=== PATIENT | male | born 1995 | race Caucasian/White ===

== ENCOUNTER 2021-05-18 18:51 | Emergency (ER) | payer OTHER, SELFPAY ==
[2021-05-18 18:57] VITALS: BP 125/76; PULSE 85; RESP 18; TEMP 37.2; O2SAT 98
--- NOTE | 2021-05-18 19:13 | ED.GENADUL_ITS ---
Discharge Plan Disposition Patient Disposition: [facility] Condition: Stable Discharge Details Clinical Impression: Encounter for medical screening examination, Hand injury Primary Care Provider: Rosalinda Hong ED Provider: Trey Yoder Home Meds and New Rx's Prescriptions: Continued bupropion HCl 75 mg Tablet 75 mg PO DAILY RF: 0 quetiapine [Seroquel] 50 mg Tablet 50 mg PO DAILY RF: 0 Discharge Instructions Additional Instructions: At this time you have been provided with a medical screening examination. Your vital signs are unremarkable. Your only complaint is that of right hand pain and you are declining evaluation of your right hand injury and also declining an x-ray. Please watch for new or worsening symptoms and return to the ER for any concerns. Otherwise follow-up with your provider at the [facility] facility in the next 2-3 days. Discharge Data Discharge Date/Time-TO BE ENTERED AT DEPARTURE: 05/18/21 19:16 Medical Decision Making 25-year-old gentleman presents in police custody for medical screening examination. Initially he wanted to be evaluated for a right hand injury but now declines. We had a very candid conversation, this is his right hand which is his dominant hand, and if he has a more serious injury such as fracture, dislocation, etc. this may not properly heal and could lead to permanent disability. Patient understands this and continues to decline any additional evaluation. He was offered a medical screening examination, vital signs are unremarkable, and he has no additional questions or concerns. Standard discharge and return precautions were provided. This documentation was generated using [employer] dictation system, please disregard any oddities of phrase or misspellings. HPI General Mode of arrival: ambulatory (In police custody) . Date/Time Provider Initiated Documentation: 05/18/21 18:59 . Limitations to Documentation: no limitations . Information obtained by: patient and police . HPI Narrative: This is a 25-year-old gentleman, denies significant past medical history, presents to the ER in police custody for medical screening examination and a right hand evaluation. Apparently he states that earlier today he slipped and fell in the shower injuring his right hand, his dominant hand. He initially requested medical attention but now states it is simply sprained it does not want any medical attention. Because he has left the facility, law enforcemtn reports that he needs to be medically cleared. Patient denies any other recent illness or trauma. He denies any other injury when he fell he reports the pain is mild to moderate worse with movement. Denies any numbness, tingling, weakness. He has no additional questions or concerns and does not want to be evaluated here in the ER Related Data Home Medications Medication Instructions Recorded Confirmed bupropion HCl 75 mg PO DAILY 05/18/21 05/18/21 quetiapine [Seroquel] 50 mg PO DAILY 05/18/21 05/18/21 Allergies Allergy/AdvReac Type Severity Reaction Status Date / Time No Known Allergies Allergy Unverified 05/18/21 19:04 General Stated Complaint: Orthopedic FLORENCIO: 4 Review of Systems Constitutional Constitutional: Denies fever(s), Denies headache(s) and Denies weakness ENT Ears, Nose, Mouth, and Throat: Denies headache(s) Musculoskeletal Musculoskeletal: Denies deformity, Denies arthralgias, Denies numbness, Reports stiffness and Denies tingling Neurologic Neurologic: Denies headache(s), Denies numbness, Denies tingling and Denies weakness PFSH All Active Problems Encounter for medical screening examination (Acute) Hand injury (Acute) Social History Smoking/Tobacco Use Status: Current every day Smoking risk assessment performed?: Yes Alcohol Intake: former Substance use type: does not use Do you feel safe at home: Yes Do you feel safe in your relationship?: Yes Exam Const General: cooperative, healthy appearing, comfortable and no acute distress Orientation: alert and awake [facility] Head: normal to inspection, normocephalic and atraumatic Eyes Conjunctivae: conjunctivae normal Neck Neck: normal visual inspection, trachea midline and supple Resp Effort & Inspection: normal respiratory effort and able to speak in complete sentences Skin General skin exam: no rashes or lesions noted Neuro General: patient alert, patient awake, moves all extremities and no focal motor deficits Cognition: normal cognition Speech: speech normal Gait: normal gait Sensory Exam: no sensory deficits noted Extrem Other: The dorsum of the right hand appears swollen. I could not palpate his hand. Extremely limited evaluation Psych Appearance: grossly normal Mental Status: mental status grossly normal Course Vital Signs Vital signs: Vital Signs Temperature 37.2 C 05/18/21 18:57 Pulse 85 05/18/21 18:57 Respiratory Rate 18 05/18/21 18:57 Blood Pressure 125/76 05/18/21 18:57 Pulse Oximetry 98 05/18/21 18:57 Temperature 37.2 C 05/18/21 18:57 Temperature Source Temporal Artery Scan 05/18/21 18:57 Pulse 85 05/18/21 18:57 Respiratory Rate 18 05/18/21 18:57 Respiratory Effort 05/18/21 18:59 Blood Pressure 125/76 05/18/21 18:57 Blood Pressure Position Sitting 05/18/21 18:57 Pulse Oximetry 98 05/18/21 18:57 Oxygen Delivery Method Room Air 05/18/21 18:57 Oxygen Flow Rate 0 05/18/21 18:57 Pain Level 3 05/18/21 18:57
== END 2021-05-18 19:16 | disposition home or self-care (01) ==
PROVIDERS: Emergency Provider Physician Assistant; PCP Family Medicine
DX: M79.641 Pain in right hand (principal); Z53.21 Procedure and treatment not carried out due to patient leaving prior to being seen by health care provider
CPT/HCPCS: 99285; 99281